=== PATIENT | male | born 1940 | race American Indian/Alaskan Native ===

== ENCOUNTER 2021-02-19 03:32 | Inpatient (IN) | payer OTHER ==
[~2021-02-19] VITALS: Ht 182.9 cm; Wt 96.4 kg
[2021-02-19] VITALS (34 sets, daily range): BP systolic 89–199; BP diastolic 28–85
--- NOTE | ~2021-02-19 | EMS ---
[facility] [address] [place] [address] EMS Patient Care Report Name: GEORGIA CHU Room #: 238-P ADM IN M.R.#: [id number] Admission: 02/19/21 Attend Phys: Padma Mejia Discharge: Date of : 36 Report #: [id number] THIS REPORT FOR: //name// Report Transmitted: 02/21/2021 14:28 EMS Care Summary [place], [place]/[facility] Incident [id number] @ 02/19/2021 02:55 Incident Location [id number] [place] [address] [address] [place] [address] Patient GEORGIA CHU Male, 80 Years 1940 Patient Address Patient History Novel Coronavirus (COVID-19), Patient Allergies Penicillin allergy, Patient Medications Furosemide, Losartan, Amiodarone, Atorvastatin, Terazosin, Proair, Eliquis, Aspirin, Chief Complaint Altered Level of Consciousness Disposition Transported [place] Dispatch Reason Unconscious/Fainting Transported To [facility] Narrative ME Staff sates hat she was doing he rounds when she found he pt w/ an altered LOC. Staff states that she could not wake pt up and pt appeared to be SOB. Staff states that pt was hypotensive and hypoxic upon her arrival. pt was diagnosed w/ COVID-19 6 days ago. ME staff states that pts O2 was increased [facility] [address] [place] [address] EMS Patient Care Report Name: GEORGIA CHU Room #: 238-P [facility] IN M.R.#: [id number] Admission: 02/19/21 Attend Phys: Padma Mejia Discharge: Date of : 36 Report #: [id number] from 2lpm to 4lpm due to the low O2 saturation. upon ems arrival, pt found laying supine in bed. pt w/ NH Staff and P28 crew. pt presents w/ labored breathing upon ems arrival.. pt moved to stretcher by ems, NH staff and P28 crew. Initial Vitals @03:18P: 62,SpO2: 80, @03:28P: 115,BP: 85/48,SpO2: 96, @03:27P: 66,BP: 68/45,SpO2: 84, @03:27P: 92,SpO2: 83, @03:26P: 81,BP: 73/40,SpO2: 92, @03:24P: 97,SpO2: 96, @03:16P: 65,R: 24,BP: 94/53,Pain: 0/10,GCS: 3,SpO2: 88,Revised Trauma: 8, @03:18P: 68,R: 24,BP: 113/54,Pain: 0/10,GCS: 5,Revised Trauma: 9, Assessments @03:11MENTAL:SKIN:Cold,Pale,HEENT:Eyes: Right Pupil: 3-mm,Eyes: Left Pupil: 3-mm,LUNG SOUNDS:ABDOMEN:PELVIS//GI:EXTREMITIES:Capillary Refill: Left Upper: 3 Sec,PULSE:Radial: 1+ Thready,NEURO: Impression Altered Mental Status Procedures @03:11ALS AssessmentResponse: UnchangedSucceeded@PTAOxygen FlowRate: 4 Device: Nasal Cannula (NC) Response: UnchangedSucceeded@03:21Saline Lock 0cc (18 ga) Site: Antecubital-LeftResponse: UnchangedFailed@03:16Oxygen FlowRate: 15 Device: Non Re-breather Mask (NRB) Response: UnchangedSucceeded@03:163-Lead ECGResponse: UnchangedSucceeded Timeline OPTICAL TECHNICIAN,Oxygen FlowRate: 4 Device: Nasal Cannula (NC) Response: UnchangedSucceeded, 02:53,Call Received 02:53,Dispatch Notified 02:55,Dispatched 02:59,En Route 03:09,On Scene 03:11,At Patient 03:11,ALS Assessment,Response: UnchangedSucceeded, 03:16,Oxygen FlowRate: 15 Device: Non Re-breather Mask (NRB) Response: UnchangedSucceeded, 03:16,3-Lead ECG,Response: UnchangedSucceeded, 03:16,BP: 94/53 M,PULSE: 65,RR: 24 R,SPO2: 88 Ox,ETCO2: ,BG: ,PAIN: 0,GCS: 3, 03:18,BP: / M,PULSE: 62,RR: R,SPO2: 80 Ox,ETCO2: ,BG: ,PAIN: ,GCS: , 03:18,BP: 113/54 M,PULSE: 68,RR: 24 R,SPO2: Ox,ETCO2: ,BG: ,PAIN: 0,GCS: 5, [address] [address] EMS Patient Care Report Name: GEORGIA CHU Room #: 238-P [facility] IN M.R.#: [id number] Admission: 02/19/21 Attend Phys: Padma Mejia Discharge: Date of : 36 Report #: [id number] 03:20,Depart Scene 03:21,Saline Lock 0cc 18 ga Site: Antecubital-Left,Response: UnchangedFailed, 03:24,BP: / M,PULSE: 97,RR: R,SPO2: 96 Ox,ETCO2: ,BG: ,PAIN: ,GCS: , 03:26,BP: 73/40 M,PULSE: 81,RR: R,SPO2: 92 Ox,ETCO2: ,BG: ,PAIN: ,GCS: , 03:27,At Destination 03:27,BP: 68/45 M,PULSE: 66,RR: R,SPO2: 84 Ox,ETCO2: ,BG: ,PAIN: ,GCS: , 03:27,BP: / M,PULSE: 92,RR: R,SPO2: 83 Ox,ETCO2: ,BG: ,PAIN: ,GCS: , 03:28,BP: 85/48 M,PULSE: 115,RR: R,SPO2: 96 Ox,ETCO2: ,BG: ,PAIN: ,GCS: , 03:38,Call Closed Disclaimer v1.1 Copyright 2020 [employer] This EMS Care Summary contains data elements from the applicable legal record (which may be displayed differently). It is designed to provide pertinent information for the following purposes: continuity of care, clinical quality, and state data reporting. The complete legal record is available to ED staff and administrators of the receiving hospital in [employer]'s Patient Tracker. All data is provided "as is."
[~2021-02-19 03:32] MED LIST: ASPIRIN81 M2 PO; ATORVASTATIN CA40 MG PO; AUGMENTIN 875875 MG PO; BP MEDS; CATAPRES0.1 MG PO; CLONIDINE0.1 PO; COZAAR 50 MG TA50 M1 PO; DEXAMETHASONE6 MG PO; ELIQUIS5 MG PO; IPRAT-ALBUT 0.5-3 ML INH; LASIX 20 MG TAB20 MG PO; LEVAQUIN 500 M500 MG PO; MIRALAX17 GM PO; PACERONE 200 M200 M1 PO; TERAZOSIN HCL10 MG PO; VENTOLIN HFA 1818 GM INH; VERAPAMIL ER120 MG PO
[2021-02-19 03:55] LABS: ABSOLUTE NEUTROPHILS 15.6 thou/uL (1.4-8.2); BASOPHILS 0.1 % (0.0-2.0); HEMATOCRIT 25.6 % (42.0-52.0); HEMOGLOBIN 8.2 gm/dL (14.0-18.0); LYMPHOCYTES 5.3 % (24.0-44.0); MCH 30.5 pg (26.0-34.0); MCV 95.4 fL (80.0-100.0); MONOCYTES 3.6 % (1.0-8.0); PLATELET COUNT 136 thou/uL (150-400); RBC 2.68 mil/uL (4.50-6.00); RDW 13.7 % (10.5-14.5); WBC 17.1 thou/uL (4.0-11.0)
[2021-02-19 03:58] LABS: CALCIUM 7.3 mg/dL (8.5-10.1); CREATININE 2.4 mg/dL (0.7-1.3); POTASSIUM 5.6 mmol/L (3.5-5.1)
[2021-02-19 04:06] LABS: BE(vivo) 2.7 mmol/L (-2 to +3); HCO3 30.4 mmol/L (22.0-26.0); PCO2 66.7 mmHg (35.0-45.0); PO2 97.1 mmHg (80.0-100.0); pH 7.276 (7.360-7.450); sO2 96.3 % (92.0-98.0)
[2021-02-19 04:10] LABS: ALBUMIN 2.2 g/dL (3.4-5.0); TOTAL BILIRUBIN 0.6 mg/dL (0.2-1.0); TOTAL PROTEIN 4.6 g/dL (6.4-8.2); TROPONIN-I 0.08 ng/mL (<0.06)
--- NOTE | 2021-02-19 07:40 | NUR ---
Called Jackie at this time to notify of him of hypotension while patient is maxed on pressors. Jackie gives verbal for albumin and hydrocortisone. Reports to call family member listed and he will discuss care goals with family. Attempted to call phone number listed on chart for Ric Catie (step-son). Ric does not answer phone. Message left to call ER back.
[2021-02-19 09:04] LABS: BE(vivo) -1.3 mmol/L (-2 to +3); PCO2 50.5 mmHg (35.0-45.0); PO2 97.4 mmHg (80.0-100.0); pH 7.312 (7.360-7.450); sO2 96.8 % (92.0-98.0)
[2021-02-19 09:08] LABS: APTT 23.4 Seconds (24.5-32.8); INR 1.1; PROTIME 11.9 Seconds (10.5-12.1)
--- NOTE | 2021-02-19 12:24 | EKG ---
[place] [address] [facility] [place] [address] ELECTROCARDIOGRAM REPORT Name: GEORGIA CHU Room #: 170-1 ADM IN M.R.#: [id number] Admission: 02/19/21 Attend Phys: Padma Mejia Discharge: Date of : 36 Report #: [id number] [facility] ED Test Date: 2021-02-19 Test Time: 04:51:35 Pat Name: GEORGIA CHU Department: Room: 170 Gender: M Geek Squad Manager: mariah : 1940 Requested By: Warner Manuel Order Number: [id number] MD: Igor Palacios Measurements Intervals [place] Rate: 129 P: PA: QRS: -62 QRSD: 137 T: 103 QT: 366 QTc: 537 Interpretive Statements Atrial fibrillation IVCD, consider atypical RBBB LVH with IVCD and secondary repol abnrm Electronically Signed On 02-19-2021 12:24:01 CDT by Igor Palacios [email or web address] <ELECTRONICALLY SIGNED> By: Igor Palacios MD 02/19/21 1224 0451 0451 Igor Palacios MD /PAIGE
--- NOTE | 2021-02-19 12:25 | EKG ---
[place] [address] [facility] [place] [address] ELECTROCARDIOGRAM REPORT Name: GEORGIA CHU Room #: 170-1 ADM IN M.R.#: [id number] Admission: 02/19/21 Attend Phys: Padma Mejia Discharge: Date of : 36 Report #: [id number] [facility] ED Test Date: 2021-02-19 Test Time: 09:10:09 Pat Name: GEORGIA CHU Department: Room: 170 1 Gender: M Recruiting Consultant: sepideh : 1940 Requested By: Maria Eugenia Healy Order Number: [id number] MD: Igor Palacios Measurements Intervals [place] Rate: 90 P: LA: QRS: -47 QRSD: 111 T: 111 QT: 398 QTc: 487 Interpretive Statements Atrial fibrillation Abnormal R-wave progression, late transition LVH with IVCD, LAD and secondary repol abnrm Compared to ECG 02/19/2021 04:51:35 Myocardial infarct finding no longer present Electronically Signed On 02-19-2021 12:25:29 CDT by Igor Palacios [email or web address] <ELECTRONICALLY SIGNED> By: Igor Palacios MD 02/19/21 1225 0910 0910 Igor Palacios MD /PAIGE
--- NOTE | 2021-02-19 16:45 | NUR ---
report received from [facility]. after Lynn transported pt to ct, pt admitted to icu #238 with diagnosis related to covid. see assessment for details. scant precedex infusing, pt sedated, no restraints while on vent at this time. SB 50-60's, titrating down vasoactive gtts- neosynephrine and levophed for bp control. protonix infusing- dark brown drainage per OG to very low suction. adequate urine output per gutierrez. prbc's 2nd unit infusing. slowly progressing.
--- NOTE | 2021-02-19 17:05 | NUR ---
VAT PLACED CL IN ER FOR COVID+
[2021-02-19 21:05] LABS: CREATININE 2.4 mg/dL (0.7-1.3); POTASSIUM 5.5 mmol/L (3.5-5.1); TROPONIN-I 0.27 ng/mL (<0.06)
[2021-02-20] VITALS (106 sets, daily range): BP systolic 81–180; BP diastolic 40–150
[2021-02-20 02:19] LABS: URINE BILIRUBIN NEGATIVE (Negative); URINE BLOOD 3+ (Negative); URINE CLARITY CLEAR; URINE COLOR YELLOW; URINE GLUCOSE-RANDOM* NEGATIVE (Negative); URINE KETONES NEGATIVE (Negative); URINE LEUKOCYTES-REFLEX TRACE (Negative); URINE NITRITE-REFLEX NEGATIVE (Negative); URINE PROTEIN (DIPSTICK) NEGATIVE (Negative); URINE UROBILINOGEN 0.2 E.U./dl (0.2-1.0)
[2021-02-20 02:58] LABS: AMORPHOUS URATES Many /LPF (None Seen); BACTERIA-REFLEX 1-9 Few /HPF (None Seen); FINE GRANULAR CASTS 0-3 Few /LPF (None Seen); HYALINE CASTS 0-3 Few /LPF (None Seen); MUCUS 4-6 Moderate strn/LPF (None Seen); SQUAMOUS 0-3 Few /LPF (0-3); URINE RBC >20 Many /HPF (NONE SEEN); URINE WBC-REFLEX 0-5 Rare /HPF (0-5)
--- NOTE | 2021-02-20 04:30 | HC ---
[facility] [place] [address] [place] [address] CONSULTATION Name: CHUGEORGIA J Room #: 238-P [facility] IN M.R.#: [id number] Admission: 02/19/21 Attend Phys: Padma Mejia Discharge: Date of : 38 Report #: [id number] THIS REPORT FOR: cc: FAM - Family physician unknown FAM - Family physician unknown Harvinder Lester MD ~ DATE OF SERVICE: 02/19/2021 INFECTIOUS DISEASE CONSULTATION ATTENDING PHYSICIAN: Dr. Mejia. REASON FOR EVALUATION: COVID-19 infection, complicated by respiratory failure and opacification of the left lung. HISTORY OF PRESENT ILLNESS: The chart was reviewed. The patient examined. This is an 80-year-old gentleman who resides in a facility, was brought in extremis to the Emergency Room. He is unable to give any details of his history, but clearly was having severe dyspnea, required emergent intubation in addition to that, was having evidence of septic shock with hypotension. He has known history of atrial fibrillation with cardiomyopathy. He was found to be COVID positive. I do not have any details if he was previously diagnosed. He was in renal failure with creatinine of 2.4. ABGs post-intubation on 100%, pH 7.276, pCO2 of 66.7, pO2 of 97.1. Lactic acid is 1.2 and increased to 2.6. Procalcitonin 0.06. He was empirically started on combination therapy with Levaquin, Merrem and vancomycin. At this point, he is not responsive, and intubated. ALLERGIES: LISTED TO PENICILLIN. CURRENT MEDICATIONS: Include levofloxacin, vancomycin, meropenem, pantoprazole, hydrocortisone. PAST MEDICAL HISTORY: Known atrial fibrillation, hypertension, TIAs. SOCIAL HISTORY: Unknown. FAMILY HISTORY: Unknown. REVIEW OF SYSTEMS: Not obtainable. PHYSICAL EXAMINATION: GENERAL: He appears chronically ill and undernourished, moderate distress. He is supine, maintained via an ET tube. He has got a central venous catheter now. VITAL SIGNS: Temperature 97.8, pulse 92, respirations 28, blood pressure 125/60. [facility] [address] [place] [place] [address] CONSULTATION Name: GEORGIA CHU Room #: 238-[facility] IN M.R.#: [id number] Admission: 02/19/21 Attend Phys: Padma Mejia Discharge: Date of : 38 Report #: [id number] SKIN: Dry. HEENT: Normocephalic. NECK: Appears to be supple. LUNGS: Scattered coarse breath sounds. HEART: Distant, borderline tachycardia. I do not appreciate a murmur, appears to be irregular. ABDOMEN: Distended, somewhat firm. There are no peritoneal signs appreciated. GENITOURINARY AND RECTAL: Deferred. LABORATORY DATA: Troponin 0.16. Procalcitonin 0.06. Chest x-ray as described above. Complete opacification of the left lung. ABGs most recently, pH 7.312, pCO2 of 50.5, pO2 of 97.4 at 100%. Electrolytes: Sodium 146, potassium 5.6, chloride 110, bicarbonate is 35, anion gap of 1, BUN and creatinine 114 and 2.4, glucose of 151, AST of 22, ALT of 30. Albumin of 2.2. CBC: White count of 17.1, H and H of 8.2 and 25.6, platelets of 136. ASSESSMENT AND PLAN: COVID-19 infection in the setting of respiratory failure with opacification of the left side. Certainly not classic presentation, I would favor more bacterial etiology in this setting. Agree with empiric broad-spectrum therapy. He is on corticosteroids; I think at this point, there is a role for remdesivir and he is in renal failure, which is contraindicated as well. He appears to be quite ill at baseline, raises question of occult process otherwise previously undiagnosed. When he stabilizes, would consider evaluation with prepped CT of the chest to exclude a postobstructive process or perhaps if fluid undergo a thoracentesis for better evaluation. We will check urinary antigen to exclude strep as a cause. Overall, his prognosis is guarded. <ELECTRONICALLY SIGNED> By: Harvinder Lester MD 02/20/21 0430 1019 46 Harvinder Lester MD /nt
[2021-02-20 06:00] LABS: HEMATOCRIT 20.5 % (42.0-52.0); LYMPHOCYTES 1.2 % (24.0-44.0); RBC 2.27 mil/uL (4.50-6.00)
[2021-02-20 06:01] LABS: ABSOLUTE NEUTROPHILS 22.9 thou/uL (1.4-8.2); HEMOGLOBIN 6.8 gm/dL (14.0-18.0); MCH 29.9 pg (26.0-34.0); MCHC 33.1 g/dL (28.0-37.0); MONOCYTES 2.7 % (1.0-8.0); PLATELET COUNT 83 thou/uL (150-400); POLYS 96.1 % (36.0-66.0); RDW 16.9 % (10.5-14.5); WBC 23.9 thou/uL (4.0-11.0)
[2021-02-20 06:09] LABS: MCV 90.4 fL (80.0-100.0)
[2021-02-20 06:14] LABS: CALCIUM 6.2 mg/dL (8.5-10.1); POTASSIUM 4.7 mmol/L (3.5-5.1)
[2021-02-20 14:54] LABS: BE(vivo) -2.8 mmol/L (-2 to +3); HCO3 23.6 mmol/L (22.0-26.0); PCO2 48.5 mmHg (35.0-45.0); PO2 237.9 mmHg (80.0-100.0); sO2 99.4 % (92.0-98.0)
[2021-02-20 14:55] LABS: pH 7.305 (7.360-7.450)
--- NOTE | 2021-02-20 15:49 | NUR ---
ASSUMED CARE OF PATIENT AT 0600. PATIENT WAS ON 20/100 +10
--- NOTE | 2021-02-20 15:51 | NUR ---
ASSUMED CARE OF PATIENT AT 0600. VENTILATOR SETTINGS WERE 20/500/.70 +10. PATIENT WAS HAVING TROUBLE MAINTAINING HIS SATURATION SO WE CHANGED TO 20/500/.80 +12. PATIENT WAS RECEIVING BLOOD AT THE TIME I MESSI AN ABG. IT WAS A CRITICAL PH OF 7.30 ALL OTHER VALUES WERE WITHIN NORMAL LIMITS. WILL CONTINUE TO WEAN PATIENT TOLERATED ONCE BLOOD IS FINISHED INFUSING
[2021-02-20 18:29] LABS: HEMATOCRIT 23.6 % (42.0-52.0); HEMOGLOBIN 7.7 gm/dL (14.0-18.0)
[2021-02-21] VITALS (37 sets, daily range): BP systolic 97–171; BP diastolic 48–63
[2021-02-21 05:00] LABS: BE(vivo) -1.5 mmol/L (-2 to +3); HCO3 24.3 mmol/L (22.0-26.0); PCO2 46.1 mmHg (35.0-45.0); PO2 163.2 mmHg (80.0-100.0)
[2021-02-21 06:26] LABS: ABSOLUTE NEUTROPHILS 17.6 thou/uL (1.4-8.2); HEMATOCRIT 22.6 % (42.0-52.0); HEMOGLOBIN 7.4 gm/dL (14.0-18.0); LYMPHOCYTES 1.5 % (24.0-44.0); MCH 29.9 pg (26.0-34.0); MCHC 32.7 g/dL (28.0-37.0); MCV 91.5 fL (80.0-100.0); PLATELET COUNT 83 thou/uL (150-400); POLYS 95.5 % (36.0-66.0); RBC 2.46 mil/uL (4.50-6.00); RDW 16.4 % (10.5-14.5); WBC 18.4 thou/uL (4.0-11.0)
[2021-02-21 06:51] LABS: CALCIUM 6.6 mg/dL (8.5-10.1); CREATININE 1.9 mg/dL (0.7-1.3); POTASSIUM 4.7 mmol/L (3.5-5.1)
--- NOTE | 2021-02-21 10:25 | NUR ---
WOUND CONSULT; THERE ARE FRICTION AREAS TO THE LEFT ELBOW ANS LEFT WRIST. SEROSANGIOUS DRAINAGE. S/S OF INFLAMMATION. NON ODOROUS. RECCOMENDATIONS; -XERORORM/BORDER FOAM CHANGE DAILY/PRN DISCUSSSED WITH RN.
--- NOTE | 2021-02-21 12:14 | NUR ---
COVID +, unable to visit with her, remains in enhanced isolation. On vent. Will cont following as needed for dc needs.
--- NOTE | 2021-02-21 15:46 | HC ---
[facility] [place] [address] [place] [address] CONSULTATION Name: CHUGEORGIA Denny Room #: 238-P ADM IN M.R.#: [id number] Admission: 02/19/21 Attend Phys: Padma Perea Jackie Discharge: Date of : 38 Report #: [id number] THIS REPORT FOR: cc: FAM - Family physician unknown FAM - Family physician unknown Marcio Lama MD ~ cc: Samuel Pinedo MD, Harvinder Lester MD DATE OF SERVICE: 02/19/2021 HISTORY OF PRESENT ILLNESS: The patient is an 80-year-old male who was evaluated for increasing shortness of breath. He was at a senior care facility recently diagnosed with COVID, reportedly had low oxygen saturations and hypotensive. He was minimally responsive on admission to the ER. Chest x-ray demonstrated whiteout of his left lung. The patient was started on blood pressure support including Levophed and epinephrine drips. EKG showing some ischemic changes, but no definitive STEMI. The patient was intubated emergently in the Emergency Room. I was consulted for evidence of significant GI bleed. The patient's hemoglobin on admission was 8.2 at 3:35 this morning; however, repeat hemoglobin at 9:15 was 5.8. An OG was placed after intubation and a large amount of bright red blood was aspirated away. The patient is on Eliquis and aspirin per his hospital chart. There are no family members available in order to obtain any further history, only history was available through the ER H and P. The patient was started with 1 unit of packed cells. His blood pressure remains 90s/60s, but has improved somewhat, but no melanotic stools during his ER stay so far. Labs are positive for COVID, on admission his INR is 1.10. PAST MEDICAL HISTORY: COVID pneumonia, now with respiratory failure requiring intubation, hypertension, previous history of TIA. MEDICATIONS ON ADMISSION: Lasix, aspirin 81 mg, albuterol, Eliquis, amiodarone, MiraLax, dexamethasone. ALLERGIES: PENICILLIN. REVIEW OF SYSTEMS: Unobtainable secondary to the patient being intubated. FAMILY HISTORY: Unobtainable. SOCIAL HISTORY: Unobtainable at this time. PHYSICAL EXAMINATION: VITAL SIGNS: Temperature 36.2, blood pressure 123/64, pulse in the 90s, respiratory rate 20. GENERAL: The patient is sedated on Precedex at this time and intubated. OG tube shows dark red blood in the aspirate of several 100 [place] [address] CONSULTATION Name: CHUGEORGIA Room #: [facility] IN M.R.#: [id number] Admission: 02/19/21 Attend Phys: Padma Mejia Discharge: Date of : 38 Report #: [id number] HEENT: Sclerae, nonicteric. CARDIOVASCULAR: Regular rate. CHEST: With decreased breath sounds bilaterally. ABDOMEN: Soft, nondistended. EXTREMITIES: No cyanosis, clubbing or edema. LABORATORY DATA: Initial labs on admission, WBC 17.1, hemoglobin 8.2, platelet count 136. Again, he had a drop in his hemoglobin of 5.8. INR 1.10. Sodium 146, potassium 5.6, chloride 110, bicarbonate 35, BUN 114, creatinine 2.4, glucose 151. Lactic acid level initially was 2.6, calcium 7.3, alkaline phosphatase 31. Troponin 0.16, total protein 4.6, albumin 2.2. Chest x-ray on admission near complete opacification of the left lung clear, right lung. Endotracheal tube in place. KUB, nonobstructive bowel gas pattern. ASSESSMENT AND PLAN: Gastrointestinal bleed, significant drop in his hemoglobin from admission early this morning from 8.2-5.8, obvious bright red blood through the OG tube, signifying significant upper GI bleed. Patient has multiple medical problems at this time including respiratory failure, complete whiteout of his left lung. He is on pressors. He is currently in the Emergency Room sedated, elevated lactic acid level. Agree with PPI drip, holding anticoagulation therapy. Continue to monitor hemoglobin closely. The patient is being transfused at this time. We will plan on emergent upper endoscopy for further evaluation. Unable to obtain consent from family member. We will proceed with emergency upper endoscopy. I will make further recommendations at that time. Thank you for allowing me to participate in his care. <ELECTRONICALLY SIGNED> By: Marcio Lama MD 02/21/21 1546 1320 1924 Marcio Lama MD /nt
--- NOTE | 2021-02-21 15:46 | P ---
[facility] [place] [address] PROCEDURE REPORT Name: GEORGIA CHU Room #: 238-P ADM IN M.R.#: [id number] Admission: 02/19/21 Attend Phys: Padma Mejia Discharge: Date of : 38 Report #: [id number] THIS REPORT FOR: cc: FAM - Family physician unknown FAM - Family physician unknown Marcio Lama MD ~ cc: Judi Pinedo, Harvinder Lester MD DATE OF SERVICE: 02/19/2021 DATE OF PROCEDURE: 02/19/2021 PROCEDURE PERFORMED: Upper endoscopy with bleeding control. HISTORY OF PRESENT ILLNESS: The patient is an 80-year-old male with COVID positive, respiratory failure, was intubated and noted to be hypotensive on admission in the Emergency Room, OG was placed and a large amount of bright red blood was aspirated. The patient is on Eliquis and aspirin for history of TIA. No other history available at this time as far as previous history of GI bleed. He has been placed on a Protonix drip. He had a drop in his hemoglobin on admission from 8.2 to 5.8. He is currently receiving 1 unit of packed cells. He is on pressure support and on Precedex at this time. Plan is for emergent upper endoscopy. Next, the procedure was performed on an emergency basis, unable to obtain any consent from family member or DPOA. The procedure was performed in the Emergency Room at the bedside. Again, the patient is on Precedex at this time. The OG tube was removed. DESCRIPTION OF PROCEDURE: Using a standard Olympus upper endoscope, the scope was placed in the patient's mouth and advanced under direct vision through the esophagus, stomach and into the second portion of the duodenum. Old blood was noted in the esophagus, but no obvious bleeding source or esophagitis was noted. Upon entering the stomach, a large clot was noted in the gastric fundus and this extended down through the pylorus. The areas were visualized. The gastric mucosa appeared normal, but again there was a large clot with limited visualization. As the scope was advanced into the duodenal bulb, it appears the clot was tethered somewhere within the duodenal bulb. This was difficult to visualize due to the size of the clot and the amount of blood in the area. Multiple washings and aspirations were performed. I was able to advance the scope through the first and into the second portion of the duodenum. It did not appear bleeding was coming from the second portion of the duodenum. I then brought the scope back up into the duodenal bulb area and again spent approximately 30 minutes trying to find the source. Eventually, I used epinephrine in the area where it appeared to be bleeding. 2 mL were used at that point. There was some slowing of the bleeding at this point. Eventually, I was able to find a large ulcer in the duodenal bulb that had a large fresh clot adherent to this area. I proceeded with injection of the base with [address] [address] PROCEDURE REPORT Name: GEORGIA CHU Room #: 238-P [facility] IN M.R.#: [id number] Admission: 02/19/21 Attend Phys: Padma Mejia Discharge: Date of : 36 Report #: [id number] epinephrine. No further bleeding was noted after epinephrine injection. I did not feel like cauterization due to the size of the clot would be successful and this was not a lesion that could be endoclipped in the ulcer base. At this point, no further bleeding was noted, although the clot remained intact. The scope was then withdrawn and the procedure terminated. The patient tolerated the procedure well. IMPRESSION: Large duodenal bulb ulcer with a large fresh clot, active bleeding, treated with epinephrine. No further active bleeding noted. Again, the clot remains in place at this time. RECOMMENDATIONS: 1. Continue PPI drip. 2. Continue to monitor hemoglobin closely. 3. Continue to hold anticoagulation therapy. If the patient has rebleeding, may need to consider interventional radiology option due to the size of the ulcer and clot base. Thank you for allowing me to participate in his care. <ELECTRONICALLY SIGNED> By: Marcio Lama MD 02/21/21 1546 1330 2100 Marcio Lama MD /nt
--- NOTE | 2021-02-21 18:33 | NUR ---
PT IS PROGRESSING TOWARDS DISCHARGE, EVIDENCED BY, LOWER FIO2 LEVEL, BETTER TOLERATING THE VENT. THIS WAS ACCOMPLISHED BY HAVING MAP GREATER THAN 65, PRODUCED BETTER URINE OUTPUT TODAY, BETTER SAO2 THROUGHOUT THE DAY. PULMONARY TOILETING STILL NEEDS WORK, PT'S INTAKE GREATER THAN OUTPUT FOR THE PAST DAY, NUTRITIONAL FEEDING WILL BE REASSESSED AT A LATER TIME, PROPOFOL GTT ADDED ON, FENTANYL GTT TITRATED DOWN BY 50% SON CALLED (AUTHORIZED CONTACT ON FILE) WAS UPDATED REGARDING CURRENT MEDICAL PRESENTATION, TALKED ABOUT FIO2, CRITICAL STATUS IN THE ICU, WELL TRENDING HGB LEVELS. VOICED SATISFACTION. WAS NOTIFIED BY RN TO CALL FOR UPDATES WHENEVER NEEDED BE. RN SIGNING OFF AT THIS TIME
[2021-02-22] VITALS (43 sets, daily range): BP systolic 108–170; BP diastolic 46–76
[2021-02-22 03:18] LABS: HEMOGLOBIN 6.9 gm/dL (14.0-18.0); MCH 30.4 pg (26.0-34.0); RBC 2.28 mil/uL (4.50-6.00)
[2021-02-22 03:19] LABS: MCHC 32.9 g/dL (28.0-37.0); MCV 92.3 fL (80.0-100.0); RDW 16.2 % (10.5-14.5)
[2021-02-22 10:21] LABS: CALCIUM 6.9 mg/dL (8.5-10.1); CREATININE 1.9 mg/dL (0.7-1.3); POTASSIUM 4.2 mmol/L (3.5-5.1)
--- NOTE | 2021-02-22 18:05 | NUR ---
PT IS PROGRESSING TOWARDS DISCHAGE, VENT SETTINGS LOWER THAN YESTERDAY, PT IS TOLERATING PROPOFOL THERAPY WELL, FENTANYL NOW AT 25MCG/HR, VASOPRESSIN HAS BEEN OFF, CURRENTLY ON THREE SEDATIVES ON LOW SETTINGS WITH LEVO AT 5. CVP TUBING AND FLUSH CHANGED TODAY, 1U OF BLOOD TRANSFUSED, HEMOGLOBIN NOW AT 8.2 MD AWARE. NO BM THIS SHIFT, BISACODYL PRN GIVEN PER ORDER. NO SKIN ISSUES AT THIS TIME, PT MAINTAINED ON STRICT TURN SCHEDULE. NO FAMILY MEMBER CONTACT. PT IS VERY STIFF AND INCREASINGLY BECOMING WEEPY AROUND THE ARMS. MD NOTIFIED. RN CONTINUING TO MONITOR AT THIS TIME
[2021-02-23] VITALS (30 sets, daily range): BP systolic 104–147; BP diastolic 46–73
[2021-02-23 01:06] LABS: HEMOGLOBIN 7.9 gm/dL (14.0-18.0)
[2021-02-23 02:17] LABS: HEMATOCRIT 24.6 % (42.0-52.0); MCH 29.1 pg (26.0-34.0); MCHC 31.8 g/dL (28.0-37.0); MCV 91.6 fL (80.0-100.0); RBC 2.68 mil/uL (4.50-6.00); RDW 16.5 % (10.5-14.5); WBC 17.3 thou/uL (4.0-11.0)
[2021-02-23 10:59] LABS: CALCIUM 7.1 mg/dL (8.5-10.1); CREATININE 1.6 mg/dL (0.7-1.3); POTASSIUM 4.3 mmol/L (3.5-5.1)
--- NOTE | 2021-02-23 12:42 | NUR ---
WOUND CARE F/U; THE PATIENT WOUNDS WERE ASSESSED TODAY. THE LEFT UPPER ARM AND FORARM SHOWS IMPROVEMENT. THERE STILL REMAINS A LARGE AMOUT OF SEROSANGINOUS DRAINAGE. NO ERYTHEMA OR ODOR. THE PATIENT REMAINS IN THE ICU. RECOMMENDATIONS; CHANGE TO AG FOAM AND SECURED WITH A TUBIGRIP. DISCSSED WITH RN.
[2021-02-23 22:31] LABS: HEMATOCRIT 24.2 % (42.0-52.0); HEMOGLOBIN 7.8 gm/dL (14.0-18.0)
[2021-02-24] VITALS (24 sets, daily range): BP systolic 114–135; BP diastolic 47–69
[2021-02-24 07:10] LABS: EOSINOPHILS 0.1 % (0.0-3.0); HEMOGLOBIN 8.1 gm/dL (14.0-18.0); RBC 2.71 mil/uL (4.50-6.00)
[2021-02-24 07:12] LABS: ABSOLUTE NEUTROPHILS 11.3 thou/uL (1.4-8.2); BASOPHILS 0.1 % (0.0-2.0); LYMPHOCYTES 1.6 % (24.0-44.0); MCH 29.7 pg (26.0-34.0); MCHC 32.2 g/dL (28.0-37.0); MCV 92.3 fL (80.0-100.0); MONOCYTES 5.5 % (1.0-8.0); PLATELET COUNT 89 thou/uL (150-400); POLYS 92.7 % (36.0-66.0); RDW 16.5 % (10.5-14.5); WBC 12.2 thou/uL (4.0-11.0)
[2021-02-24 07:24] LABS: ALBUMIN 2.4 g/dL (3.4-5.0); CALCIUM 7.3 mg/dL (8.5-10.1); CREATININE 1.7 mg/dL (0.7-1.3); POTASSIUM 3.9 mmol/L (3.5-5.1); TOTAL PROTEIN 4.2 g/dL (6.4-8.2)
[2021-02-24 08:41] LABS: BE(vivo) -1.1 mmol/L (-2 to +3); HCO3 26.1 mmol/L (22.0-26.0); PO2 114.8 mmHg (80.0-100.0); sO2 97.6 % (92.0-98.0)
[2021-02-24 08:42] LABS: pH 7.278 (7.360-7.450)
[2021-02-24 15:39] LABS: BE(vivo) -3.3 mmol/L (-2 to +3); PCO2 46.8 mmHg (35.0-45.0); PO2 81.3 mmHg (80.0-100.0); sO2 94.9 % (92.0-98.0)
[2021-02-24 16:52] LABS: pH 7.309 (7.360-7.450)
--- NOTE | 2021-02-24 19:40 | NUR ---
PT IS PROGRESSING TOWARDS DISCHARGE WAS ABLE TO GO ON CPAP TRIAL TODAY, TWICE, ONCE ON SEDATION, ONCE WITHOUT, BOTH FAILED, AND WILL ATTEMPT TOMORROW MORNING AGAIN. PT IS NOT FOLLOWING COMMANDS AND SEEN REACHING FOR THE ETUBE WHEN NOT SEDATED. PT REMAINS ON SAME GTT SETTINGS. TOLERATING TUBE FEEDING WELL NO RESIDUALS SEEN THIS SHIFT. NO FAMIL MEMBERS CALLED THIS SHIFT SO NO UPDATE WAS PROVIDED. PT IS RESTING AT THIS TIME, BISACODYL PRN WAS GIVEN, SMEAR SEEN DURING SUPPOSITORY INSERTION, KUB REFLECTS GAS IN COLON, GI FOLLOWING, HGB CAME BACK >8 THIS AFTERNOON. RN SIGNING OFF AT THIS TIME
[2021-02-25] VITALS (24 sets, daily range): BP systolic 104–166; BP diastolic 49–114
[2021-02-25 05:25] LABS: HEMATOCRIT 23.9 % (42.0-52.0); HEMOGLOBIN 7.9 gm/dL (14.0-18.0); MCH 30.3 pg (26.0-34.0); MCHC 33.3 g/dL (28.0-37.0); MCV 90.8 fL (80.0-100.0); RBC 2.63 mil/uL (4.50-6.00); WBC 10.3 thou/uL (4.0-11.0)
--- NOTE | 2021-02-25 05:28 | NUR ---
FOLLOWED COMMANDS WEAKLY IN ALL 4 EXTREMITIES AT MN ASSESSMENT. MOVES HEAD AND APPEARS UNCOMFORTABLE WITH TURNS AND SOME CARES. TOLERATING TF, SATS 100%. CAUTIOUSLY PROGRESSING TOWARD GOALS
[2021-02-25 05:34] LABS: CALCIUM 7.3 mg/dL (8.5-10.1); CREATININE 1.4 mg/dL (0.7-1.3); POTASSIUM 3.8 mmol/L (3.5-5.1)
--- NOTE | 2021-02-25 09:27 | NUR ---
Pt tolerating sedation vacation well - able to squeeze hands bilaterally, lift head off of pillow. Eyes are both open completely, pt beginning to follow simple instructions. Will pass on to RT and discuss with MD.
--- NOTE | 2021-02-25 14:56 | NUR ---
Chart review, discussed during am unite rounds and los. +COVID, remains on vent with nutritional support. CPAP trials. Spoke with step patrick tim via phone call, no concerns voiced. Education on skilled rehab, 1st choice would be [facility] would be where he would want rehab, he been there before per tim. will cont. following as needed for dc needs.
[2021-02-26] VITALS (30 sets, daily range): BP systolic 80–158; BP diastolic 29–83
[2021-02-26 05:28] LABS: HEMOGLOBIN 7.2 gm/dL (14.0-18.0)
--- NOTE | 2021-02-26 05:53 | NUR ---
SR WITH FREQUENT PACS, PT MORE AWAKE, FOLLOWS COMMANDS, DENIES PAIN, CAN ANSWER SIMPLE QUESTIONS WITH NOD/SHAKE. CLEANED UP SOFT SMALL BMX1, BLACK WITH DEFINITE RED/MAROON NOTED. MOVES R ARM UP AND DOWN, CAN SQUEEZE WITH L HAND BUT DOES NOT APPEAR TO MOVE IT WELL. REQUIRING FAIRLY FREQUENT ETT SUCTION
[2021-02-26 06:39] LABS: ABSOLUTE NEUTROPHILS 11.6 thou/uL (1.4-8.2); EOSINOPHILS 0.7 % (0.0-3.0); HEMATOCRIT 22.1 % (42.0-52.0); MCH 30.3 pg (26.0-34.0); MCHC 33.2 g/dL (28.0-37.0); MCV 91.2 fL (80.0-100.0); MONOCYTES 5.3 % (1.0-8.0); PLATELET COUNT 87 thou/uL (150-400); RBC 2.42 mil/uL (4.50-6.00); RDW 16.4 % (10.5-14.5); WBC 12.8 thou/uL (4.0-11.0)
[2021-02-26 06:50] LABS: ALBUMIN 1.8 g/dL (3.4-5.0); CALCIUM 7.3 mg/dL (8.5-10.1); CREATININE 1.5 mg/dL (0.7-1.3); POTASSIUM 3.5 mmol/L (3.5-5.1); TOTAL BILIRUBIN 1.2 mg/dL (0.2-1.0); TOTAL PROTEIN 3.5 g/dL (6.4-8.2)
--- NOTE | 2021-02-26 08:34 | NUR ---
Per Dr. Manriquez, type and screen patient. If GI feels intervention possible/necessary to call family.
[2021-02-26 09:03] LABS: URINE BILIRUBIN NEGATIVE (Negative); URINE BLOOD 3+ (Negative); URINE CLARITY CLEAR; URINE COLOR YELLOW; URINE GLUCOSE-RANDOM* NEGATIVE (Negative); URINE KETONES NEGATIVE (Negative); URINE LEUKOCYTES-REFLEX NEGATIVE (Negative); URINE NITRITE-REFLEX NEGATIVE (Negative); URINE PROTEIN (DIPSTICK) NEGATIVE (Negative); URINE SPECIFIC GRAVITY 1.015 (1.005-1.035); URINE UROBILINOGEN 0.2 E.U./dl (0.2-1.0)
[2021-02-26 09:36] LABS: CASTS None Seen /LPF (None Seen); MUCUS 0-3 Light strn/LPF (None Seen); SQUAMOUS 0-3 Few /LPF (0-3)
[2021-02-26 09:37] LABS: BACTERIA-REFLEX 1-9 Few /HPF (None Seen); URINE RBC 3-10 Few /HPF (NONE SEEN); URINE WBC-REFLEX 0-5 Rare /HPF (0-5)
[2021-02-26 09:40] LABS: CRYSTALS None Seen /LPF (None Seen)
--- NOTE | 2021-02-26 10:28 | NUR ---
RN spoke with son Ric extensively. Per Ric, his sister Kiera is not to be contacted regarding the pt after selling his house and forcing pt into a halfway home/assisted living facility after initially moving him in with her to be cared for. Per Dr. Manriquez, Kiera is requesting not to be contacted and does not want to be listed as DPOA anymore/is refusing decision making. RN called assisted living [facility] and spoke with front desk specialist who stated they wouldn't have any DPOA or living will on file as pt rents an apartment from them. RN to pass update to .
[2021-02-27] VITALS (25 sets, daily range): BP systolic 108–167; BP diastolic 57–93
[2021-02-27 05:26] LABS: HEMOGLOBIN 8.2 gm/dL (14.0-18.0)
--- NOTE | 2021-02-27 06:52 | NUR ---
PT NOT FOLLOWING COMMANDS TO KEEP HANDS DOWN, FOLLOWING OTHER COMMANDS, ATTEMPTING TO SPEAK. RESTRAINED FOR SAFETY. RESTING QUIETLY FOR MOST OF SHIFT
[2021-02-27 06:54] LABS: CALCIUM 7.4 mg/dL (8.5-10.1); CREATININE 1.3 mg/dL (0.7-1.3); POTASSIUM 3.7 mmol/L (3.5-5.1); TOTAL BILIRUBIN 1.1 mg/dL (0.2-1.0); TOTAL PROTEIN 4.1 g/dL (6.4-8.2)
[2021-02-27 11:17] LABS: ABSOLUTE NEUTROPHILS 12.5 thou/uL (1.4-8.2); BASOPHILS 0.1 % (0.0-2.0); EOSINOPHILS 0.1 % (0.0-3.0); HEMATOCRIT 24.6 % (42.0-52.0); MCH 30.5 pg (26.0-34.0); MCHC 33.4 g/dL (28.0-37.0); MCV 91.3 fL (80.0-100.0); MONOCYTES 5.5 % (1.0-8.0); PLATELET COUNT 111 thou/uL (150-400); POLYS 91.3 % (36.0-66.0); RBC 2.69 mil/uL (4.50-6.00); RDW 16.6 % (10.5-14.5); WBC 13.7 thou/uL (4.0-11.0)
[2021-02-28] VITALS (37 sets, daily range): BP systolic 98–187; BP diastolic 47–99
--- NOTE | 2021-02-28 06:17 | NUR ---
Pt remains stable this moning. No significant event in this shift. He is much more calmer since switched sedative to precedex gtt. HR were in 50's when he is sleeping. BP stable. Continue to tolerate TF well. He is slowly proressing toward goals.
[2021-02-28 07:01] LABS: CALCIUM 7.8 mg/dL (8.5-10.1); CREATININE 1.4 mg/dL (0.7-1.3); POTASSIUM 3.7 mmol/L (3.5-5.1)
[2021-02-28 12:57] LABS: HCO3 27.7 mmol/L (22.0-26.0); PCO2 37.9 mmHg (35.0-45.0); PO2 62.7 mmHg (80.0-100.0); pH 7.482 (7.360-7.450); sO2 93.6 % (92.0-98.0)
--- NOTE | 2021-02-28 14:08 | NUR ---
Chart review, COVID +. discussed during am unite rounds and los with hospitalist. Bedside nurse cont. update family. Vent, cpap trials as ordered by MD. Nutritional support. Will cont. following as needed for dc needs.
--- NOTE | 2021-02-28 14:24 | NUR ---
WOUND CARE F/U; THE LEFT FORARM AND WRIST WOUNDS ARE STABLE TODAY. NO CHAGE IN THE POC TODAY. THESE WOUNDS ARE LIKLEY FRICTION INJURIES FROM THE RESTRAINTS. SEROSANGINOUS DRAINAGE. DISCUSSED WITH BECKI.
--- NOTE | 2021-02-28 18:25 | NUR ---
PT IS NOT PROGRESSING TOWARDS DISCHARGE, CPAP TRIAL TODAY WITH PRECEDEX GTT ONBOARD, UNABLE TO COME OFF OF VENTILATOR DUE TO HIGH RESPIRATORY RATE AND LOW TIDAL VOLUME. RSBI TOO HIGH. SUPPOSITORY PRN GIVEN DAILY PER GI RECOMMENDATION, KUB DONE TODAY.
[2021-03-01] VITALS (33 sets, daily range): BP systolic 116–198; BP diastolic 56–107
[2021-03-01 04:51] LABS: HEMATOCRIT 25.8 % (42.0-52.0); HEMOGLOBIN 8.6 gm/dL (14.0-18.0); MCH 30.9 pg (26.0-34.0); MCHC 33.5 g/dL (28.0-37.0); MCV 92.2 fL (80.0-100.0); RBC 2.8 mil/uL (4.50-6.00); RDW 17.5 % (10.5-14.5); WBC 11.2 thou/uL (4.0-11.0)
[2021-03-01 05:54] LABS: CALCIUM 7.7 mg/dL (8.5-10.1); CREATININE 1.3 mg/dL (0.7-1.3); POTASSIUM 3.6 mmol/L (3.5-5.1)
[2021-03-01 14:37] LABS: HEMOGLOBIN 8.4 gm/dL (14.0-18.0)
--- NOTE | 2021-03-01 14:46 | NUR ---
PT IS PROGRESSING TOWARDS DISCHARGE AT THIS TIME, CPAP TRIAL FIRST ONE FAILED THOUGH PT WAS ABLE TO MAKE IT APPROXIMATELY 25MINUTES SUSTAINING UNTIL RESPIRATORY RATE GOT TOO HIGH AND RSBI >100. PT APPEARS MORE AWAKE THIS SHIFT, INTERACTING WITH STAFF MEMBERS, APPEARS UNCOMFORTABLE AT THIS TIME. WILL ADMINISTER APPROPERIATE MEDS TO KEEP COMFORT. RN CONTINUING TO MONITOR NO PT FAMILY MEMBERS CALLED AT THIS TIME
[2021-03-02] VITALS (22 sets, daily range): BP systolic 107–170; BP diastolic 58–86
[2021-03-02 04:58] LABS: HEMATOCRIT 25.6 % (42.0-52.0); HEMOGLOBIN 8.5 gm/dL (14.0-18.0); MCH 30.5 pg (26.0-34.0); MCHC 33.1 g/dL (28.0-37.0); MCV 92.2 fL (80.0-100.0); RBC 2.77 mil/uL (4.50-6.00); RDW 17.6 % (10.5-14.5); WBC 11.8 thou/uL (4.0-11.0)
[2021-03-02 05:15] LABS: CALCIUM 7.5 mg/dL (8.5-10.1); CREATININE 1.3 mg/dL (0.7-1.3); POTASSIUM 3.4 mmol/L (3.5-5.1)
--- NOTE | 2021-03-02 05:41 | NUR ---
PT AWAKE, ABLE TO INTERACT WITH STAFF, PASSIVE/ACTIVE ROM PERFORMED, ASKING ABOUT WHEN TUBE IS BEING REMOVED, STATING IT HURTS HIS THROAT. TOLERATING TF AT A SLOWER RATE, TITRATING VERY SLOWLY AFTER HIGH RESIDUALS RECENTLY. HR SB-SR, PAC/PVC, BP OCCASIONALLY SLIGHTLY ELEVATED. MINIMAL SECRETIONS,
[2021-03-03] VITALS (20 sets, daily range): BP systolic 92–170; BP diastolic 54–104
[2021-03-03 05:24] LABS: HEMATOCRIT 25.6 % (42.0-52.0); HEMOGLOBIN 8.4 gm/dL (14.0-18.0); MCH 30.6 pg (26.0-34.0); MCHC 32.8 g/dL (28.0-37.0); MCV 93.4 fL (80.0-100.0); RBC 2.74 mil/uL (4.50-6.00); RDW 17.8 % (10.5-14.5); WBC 13.3 thou/uL (4.0-11.0)
[2021-03-03 05:45] LABS: CALCIUM 7.5 mg/dL (8.5-10.1); CREATININE 1.3 mg/dL (0.7-1.3); POTASSIUM 3.3 mmol/L (3.5-5.1)
[2021-03-03 09:57] LABS: BE(vivo) 4.8 mmol/L (-2 to +3); HCO3 28.2 mmol/L (22.0-26.0); PCO2 37.3 mmHg (35.0-45.0); PO2 84.9 mmHg (80.0-100.0); pH 7.497 (7.360-7.450); sO2 97.1 % (92.0-98.0)
--- NOTE | 2021-03-03 11:00 | NUR ---
WOUND CARE F/U; THE LEFT ELBOW AND LEFT FORARM SKIN TEARS ARE MUCH IMPROVED TODAY. THEY ARE STABLE WOUNDS AT THIS TIME WITH NO S/S OF INFECTION. NO CHANGES TO POC, DISCUSSED WITH RN.
--- NOTE | 2021-03-03 13:40 | NUR ---
Pt tolerating NC well, one hour post extubation. Pt states he "doesn't want that breathing tube ever again". RN encouraged pt on his progress and turned on TV for pt to browse. RN to call family and update on extubation.
[2021-03-04] VITALS (14 sets, daily range): BP systolic 133–180; BP diastolic 69–97
[2021-03-04 05:53] LABS: HEMATOCRIT 27.6 % (42.0-52.0); HEMOGLOBIN 9.1 gm/dL (14.0-18.0); MCH 30.7 pg (26.0-34.0); MCV 93.1 fL (80.0-100.0); RBC 2.96 mil/uL (4.50-6.00); RDW 17.7 % (10.5-14.5); WBC 14.7 thou/uL (4.0-11.0)
[2021-03-04 06:11] LABS: CALCIUM 7.7 mg/dL (8.5-10.1); CREATININE 1.3 mg/dL (0.7-1.3); POTASSIUM 3.3 mmol/L (3.5-5.1)
--- NOTE | 2021-03-04 06:43 | NUR ---
ASSUMED CARE AT 1900. PT SATTING UPPER 90'S ON 5L, DENIES SOB. PT C/O NAUSEA, WHICH WORSENED WHEN LYING FLAT, CAUSING SOME CLEAR EMESIS; OBTAINED ORDER FOR COMPAZINE FROM [facility]. PT DID NOT SLEEP OVERNIGHT, JUST SAT AWAKE AND LOOKING AROUND; SEEMED TO STRUGGLE TO PROCESS TIMELINE OF COMING TO THE HOSPITAL AND HOW LONG HE WAS INTUBATED. VERY FLAT AFFECT. TO BE SEEN BY PT/OT/ST TODAY, POSSIBLY BE STARTED ON A DIET. SLOWLY PROGRESSING TOWARDS GOALS.
--- NOTE | 2021-03-04 14:03 | NUR ---
Discussed during los with hospitalist and unite round with pulmonary. Therapy to eval, speech to eval for diet. o2 3 L/nc. will send referral to [facility] when ready to dc. No anticipated dc over the weekend. Will cont following as needed for dc needs.
--- NOTE | 2021-03-04 14:50 | NUR ---
RECEIVED PT FROM ICU. PT RESTING IN BED. PT HAS FOREHEAD PULSE OX; SUCTION SET UP FOR SECRETIONS. VS SBP 150-160s, AFEBRILE. DR MOBLEY CONSULTED. FALL PRECAUTIONS IN PLACE. FREQUENT ROUNDING.
--- NOTE | 2021-03-04 17:07 | NUR ---
PATIENT STABLE FOR TRANSFER PER DR. GARCIA. ON 3L NC AND MAINTAINS SATS MID TO HIGH 90'S. SPEECH EVAL DONE THIS MORNING, PATIENT AT HIGH RISK FOR ASPIRATION. DR. GARCIA AND ITZ NOTIFIED. DENIES ANY PAIN OR DISCOMFORT. PT/OT SEEING PATIENT. RESTING IN BED WITH FLAT AFFECT, SPEAKS MINIMAL WORDS WHEN SPOKEN TO BUT WILL NOD HEAD YES OR NO. ALERT AND AWAKE. NOTED K+ 3.3, COMMUNICATED TO DR. MOBLEY, ALSO NOTED HTN AND HEMATURIA, COMMUNICATED TO DR. MOBLEY. PATIENT TRANSFERED TO ROOM 214 IN THE CCU. REPORT GIVEN TO JAMES CONNELL.
[2021-03-05 03:54] VITALS: BP 132/81
[2021-03-05 06:43] LABS: HEMATOCRIT 27.8 % (42.0-52.0); HEMOGLOBIN 9.1 gm/dL (14.0-18.0); MCH 30.8 pg (26.0-34.0); MCHC 32.8 g/dL (28.0-37.0); MCV 93.8 fL (80.0-100.0); RBC 2.96 mil/uL (4.50-6.00); RDW 17.7 % (10.5-14.5); WBC 11.4 thou/uL (4.0-11.0)
[2021-03-05 07:00] VITALS: BP 174/88
[2021-03-05 07:24] LABS: CALCIUM 7.7 mg/dL (8.5-10.1); CREATININE 1.5 mg/dL (0.7-1.3); POTASSIUM 3.2 mmol/L (3.5-5.1)
--- NOTE | 2021-03-05 07:48 | NUR ---
assessments as charted,vss, pt refusing to turn or reposition, no c/o pain, labs drawn thru the r ij, remains on 3l/nc will con't to monitor per ppoc.
--- NOTE | 2021-03-05 10:50 | NUR ---
PT IS AXOX3-4; PT HAS FLAT AFFECT AND DOES NOT WANT TO ANSWER QUESTIONS. WILL SHAKE HEAD NO, AND ONLY SPEAK IF HE APPEARS TO DISLIKE SOMETHING, SUCH MOVING HIS ARMS, TURNING. DR LEWIS CONSULTED. PT TO HAVE DOBHOFF REPLACED PER DR LEWIS, WITH INITIAL TUBE FEEDING RATE. DR GARCIA CONSULTED. PT APPEARS DEPRESSED AND DOES NOT WANT TO MOVE POSITIONS; COMPLAINS THE MOVING HURTS HIM. POC IS TO INITIATE TUBE FEEDING WITH MEDICATIONS; CONSULT DR LEWIS FOR ADDL INTERVENTIONS REGARDING DEPRESSION. PT/OT/ST CONSULTED. POOR PROGRESSION TOWARDS D/C GOALS. FREQUENT ROUNDING.
[2021-03-05 11:30] VITALS: BP 150/88
--- NOTE | 2021-03-05 13:34 | NUR ---
DOBHOFF PLACEMENT PER DR LEWIS. USED 6FR TO PLACE IN R NARES. XRAY FOR PLACEMENT. PT HAD REMOVED DOBHOFF PRIOR TO XRAY. DR LEWIS NOTIFIED. CONSULT PLACED FOR PSYCHIATRY FOR COMPETENCY AND SEVERE DEPRESSION. WILL CONTINUE TO ASSESS PT MENTATION. FREQUENT ROUNDING.
[2021-03-05 16:00] VITALS: BP 139/70; BP 149/113
[2021-03-05 19:42] VITALS: BP 192/91
--- NOTE | 2021-03-05 20:09 | NUR ---
UPON INITIAL ASSESSMENT PATIENT IS OBSERVED TO BE MOSTLY ALERT AND ORIENTED BUT WITHDRAWN AND FLAT. PATIENT VOICED REFUSAL OF DOBHOFF TUBE, AND THAT HE WOULD REMOVE IT IF PLACED. NURSE TO CONFER WITH PROVIDER.
[2021-03-05 20:18] VITALS: BP 148/86
[2021-03-06 03:26] VITALS: BP 178/85
[2021-03-06 04:53] LABS: HEMATOCRIT 26.5 % (42.0-52.0); HEMOGLOBIN 8.9 gm/dL (14.0-18.0); MCH 31.4 pg (26.0-34.0); MCHC 33.6 g/dL (28.0-37.0); MCV 93.4 fL (80.0-100.0); RBC 2.83 mil/uL (4.50-6.00); RDW 17.4 % (10.5-14.5)
[2021-03-06 05:34] LABS: CALCIUM 7.4 mg/dL (8.5-10.1); CREATININE 1.4 mg/dL (0.7-1.3); POTASSIUM 3.2 mmol/L (3.5-5.1)
[2021-03-06 07:49] VITALS: BP 185/95
[2021-03-06 11:31] VITALS: BP 192/77
[2021-03-06 15:36] VITALS: BP 186/81
--- NOTE | 2021-03-06 19:01 | NUR ---
UPON INITIALLY MEETING PATIENT THIS EVENING HE IS ALERT TO SELF ONLY. NURSING PUT PATIENT IS RESTRAINTS AND PLACED DOBHOFF PER PROVIDERS ORDERS. XRAY TAKEN OF PATIENTS ABDOMEN WITH PRIMARY NURSE INFORMED TO WAIT FOR RESULT PRIOR TO GIVING MEDICATIONS AND INITIATING TUBE FEED.
[2021-03-06 19:49] VITALS: BP 202/110
--- NOTE | 2021-03-06 20:07 | NUR ---
RECEIVED THE PT AXOX4, RESTING COMFORTABLY IN BED. VS SBP 160S-180S, AFEBRILE, SR WITH PVC ON MONITOR. PT HAS R IJ TL; RX IV MEDS GIVEN. ROUTE NOT AVAILABLE FOR ORAL/TUBE MEDS. DR LEWIS ROUNDED. PT WAS TOLD BY HOSPITALIST THE NEED FOR DOBHOFF, PT STATED HE "DIDN'T KNOW." PREVIOUS DOBHOFF PLACEMENT WAS UNSUCCESSFUL AND LAND RECLAMATION SPECIALIST STATED PT REFUSED DOBHOFF. PT DID NOT VERBALIZE ANY NEEDS THROUGHOUT SHIFT, NODDING AND GIVING "THUMBS UP" TO INDICATE 'YES.' DR LEWIS STATED PT NEEDED DOBHOFF, AND TO PLACE PT IN SOFT RESTRAINTS. PT WAS AXOX4 AT TIME OF STATEMENT. NURSE DID NOT AGREE WITH ORDER PT WAS FIRM IN HIS ACTIONS AND ANSWERS FROM PREVIOUS SHIFT. PT MENTATION WANED THROUGHOUT SHIFT, AND PT WAS AXOX2 BY END OF SHIFT. PT PLACED IN BILATERAL WRIST SOFT RESTRAINTS. DOBHOFF PLACED, AND STAT XRAY ORDERED. AWAITING RESULTS OF DOBHOFF PRIOR TO INITIATING TUBE FEEDING. FAMILY NOTIFIED OF RESTRAINTS AND DOBHOFF PLACEMENT. FAMILY COMMUNICATED UNDERSTANDING. POC IS TO RESUME TUBE FEEDINGS, AND CONTINUE RX MEDICATIONS THROUGH TUBE. WILL CONTINUE TO MONITOR VSS, PT MENTATION. FALL PRECAUTIONS IN PLACE. FREQUENT ROUNDING.
[2021-03-06 22:40] VITALS: BP 176/76
[2021-03-07 04:25] VITALS: BP 196/107
[2021-03-07 04:40] LABS: CALCIUM 7.4 mg/dL (8.5-10.1); CREATININE 1.4 mg/dL (0.7-1.3); POTASSIUM 3.1 mmol/L (3.5-5.1)
[2021-03-07 05:01] LABS: HEMATOCRIT 26.7 % (42.0-52.0); HEMOGLOBIN 9.1 gm/dL (14.0-18.0); MCH 31.8 pg (26.0-34.0); MCV 93.4 fL (80.0-100.0); RBC 2.86 mil/uL (4.50-6.00); RDW 17.8 % (10.5-14.5); WBC 8.9 thou/uL (4.0-11.0)
[2021-03-07 08:00] VITALS: BP 202/103
--- NOTE | 2021-03-07 11:10 | NUR ---
CHELSI reviewed chart and spoke with nursing and attending physician. Pt transferred to CCU from ICU. Enhanced Isolation precautions have been discontinued. Therapy evals have been ordered. ST to eval pt for recommendations for a diet. Pt has pulled out his dobhoff. Dobhoff is currently out. Pt is not in restraints. CHELSI spoke with pt's Ric naik, via phone. Updated provided. Discussed referral to [facility] SNF. Pt's gumaro is agreeable with referral, as pt has been to [facility] in the past. Pt was admitted to [facility] from [facility]. SW confirmed with [facility] post-acute liaison. Pt was in their SNF from 02/16/2021-02/19/2021. Pt was admitted to [place] from [facility]. CHELSI faxed referral to [facility] and left voice message for the admissions dept. Awaiting call back at this time. Will fax additional info when available. CHELSI is following to assist as needed with discharge planning.
[2021-03-07 12:06] VITALS: BP 154/42
[2021-03-07 16:00] VITALS: BP 164/77
[2021-03-07 20:38] VITALS: BP 211/97
[2021-03-08 04:51] VITALS: BP 179/90
--- NOTE | 2021-03-08 05:28 | NUR ---
PATIENT REFUSED HIS PO MEDS THIS SHIFT WELL HIS HEPARIN SQ THIS MORNING.PT STATES "LEAVE ME ALONE".MONITOR SHOWS SA WITH PVC'S.POC CONTINUED.
[2021-03-08 07:53] VITALS: BP 202/98
--- NOTE | 2021-03-08 09:07 | NUR ---
CHELSI reviewed chart. Palliative care physician consulted today. CHELSI left another voice message for the admissions dept at [facility] to follow up on referral faxed yesterday. CHELSI is following to assist as needed with discharge planning.
[2021-03-08 12:34] LABS: CALCIUM 7.5 mg/dL (8.5-10.1); CREATININE 1.4 mg/dL (0.7-1.3); POTASSIUM 3.2 mmol/L (3.5-5.1)
[2021-03-08 15:53] VITALS: BP 165/78
[2021-03-08 19:30] VITALS: BP 127/48
[2021-03-09 03:58] VITALS: BP 170/74
[2021-03-09 04:00] VITALS: BP 178/117
--- NOTE | 2021-03-09 04:15 | NUR ---
PT IS CONFUSED IN RESTRAINTS COMBATIVE MAKES NO SENSE WHEN HE TALKS. TAKES MEDS CRUSHED IN APPLESAUSE. LUNGS ARE CLEAR TO DIMININSED ON ROOM AIR. REPOSITION AND TELE LEADS PUT ON WITH THE AIDS. BED EXTERNDER PUT ON VIA MAINTENCE NOTIFIED PT IS TALL AND NEEDS IT FOR COMFORT. ONGOING ROUNDING AND CALL LIGHT WITHIN REACH FREQUENTLY
--- NOTE | 2021-03-09 04:21 | NUR ---
PT IS ALERT AND ORIENTED X2. PT SON CAME AND VISITIVED THIS EVENING. PT TOOK MEDS WITH APPLESAUSE AFTER SON VISITED. PT TURN IN BED. PT HAD A LOOSE LIQUID BOWEL MOVEMENT AND CLEANED UP. ABDOMEN IS SOFT ROUND BOWEL SOUNDS ACTIVE X4. EDEMA NOTED 4 PLUS IN LEGS BILATERAL AND HANDS BILAERAL NOTED. TUBI WRAPS IN LEGS AND HANDS NOTED. CALL LIGHT WITHIN REACH IF NEEDS ASSISTANCE
--- NOTE | 2021-03-09 11:54 | NUR ---
Pt's step son/dpoa Ric updated and advised [facility] is full with no beds available. [employer] snf listing reviewed. Ric is aware of possible need for ltc pending outcome of rehab. Pt refusing po/meds/therapy at times. Ric is interested in [facility], [facility] [place] as they are all closer to his home. He would consider [facility] if needed or [facility]. Referrals called and faxed to the first three facilities. Awaiting return call on bed availability at all three. Pt is dc ready today and [employer] is still waiving auth for SNF thru 03/28.
--- NOTE | 2021-03-09 12:35 | NUR ---
Pallative care consult yesterday evening. Sp with [facility] sp with step son and reports at this daniel he wants to continue with pursuing aggresive tx, Dr Squires also sp with him. Plan to inquire into skilled rehab, He was notified [facility] with no skilled beds avail.
[2021-03-09 15:00] VITALS: BP 115/66
[2021-03-09] MEDS ORDERED: PROTONIX40 M2 PO (16:13)
[2021-03-09] MEDS ORDERED: VITAMIN D325 MC2 PO (16:13)
[2021-03-09] MEDS ORDERED: AMLODIPINE BESY10 MG PO (16:13)
[2021-03-09] MEDS ORDERED: ACEROLA C500 MG PER TUBE (16:13)
[2021-03-09] MEDS ORDERED: FLOMAX0.4 MG PO (16:13)
[2021-03-09] MEDS ORDERED: CARAFATE 11 GM/10 M1 PO (16:13)
--- NOTE | 2021-03-09 18:38 | NUR ---
PATIENT BEING DISCHARGED TO [facility] VIA EMS AT THIS TIME. REPORT CALLED TO BECKI RICHARDSON NO QUESTIONS OR CONERNS AT TIME OF DISCHARGE. CENTRAL LINE REMOVED,TELE REMOVED. TOBIAS LEFT WITH DR. HART ORDERS.
== END 2021-03-09 18:30 | DRG 870 ==
LOC: ER 03:32 → EROBS 05:31 → ICU 05:31 → 2N 03-04 14:09
PROVIDERS: Emergency Medicine; Hospitalist; Internal Medicine; Internal Medicine Pulmonary Disease; Nurse Practitioner; Nurse Practitioner Family; Pediatrics; Specialist; ADMIT Hospitalist; ATTEND Hospitalist
PROC: 5A1955Z Respiratory Ventilation, Greater than 96 Consecutive Hours (ICD-10-PCS; principal; 2021-02-19)
PROC: 0BH17EZ Insertion of Endotracheal Airway into Trachea, Via Natural or Artificial Opening (ICD-10-PCS; principal; 2021-02-19)
PROC: 3E0G8GC Introduction of Other Therapeutic Substance into Upper GI, Via Natural or Artificial Opening Endoscopic (ICD-10-PCS; principal; 2021-02-19)
PROC: 02HV33Z Insertion of Infusion Device into Superior Vena Cava, Percutaneous Approach (ICD-10-PCS; principal; 2021-02-19)
PROC: 30233N1 Transfusion of Nonautologous Red Blood Cells into Peripheral Vein, Percutaneous Approach (ICD-10-PCS; principal; 2021-02-19)
DX: A41.9 Sepsis, unspecified organism (principal); U07.1 COVID-19; J12.82 Pneumonia due to coronavirus disease 2019; R65.21 Severe sepsis with septic shock; J80 Acute respiratory distress syndrome; K26.4 Chronic or unspecified duodenal ulcer with hemorrhage; G92 Toxic encephalopathy; E46 Unspecified protein-calorie malnutrition; N17.9 Acute kidney failure, unspecified; I42.9 Cardiomyopathy, unspecified; D62 Acute posthemorrhagic anemia; E87.0 Hyperosmolality and hypernatremia; K56.7 Ileus, unspecified; E87.8 Other disorders of electrolyte and fluid balance, not elsewhere classified; I10 Essential (primary) hypertension; R77.8 Other specified abnormalities of plasma proteins; E78.5 Hyperlipidemia, unspecified; I48.0 Paroxysmal atrial fibrillation; I95.9 Hypotension, unspecified; E87.5 Hyperkalemia; D69.6 Thrombocytopenia, unspecified; F32.9 Major depressive disorder, single episode, unspecified; E87.6 Hypokalemia; Z68.28 Body mass index [BMI] 28.0-28.9, adult; Z86.73 Personal history of transient ischemic attack (TIA), and cerebral infarction without residual deficits; Z79.82 Long term (current) use of aspirin; Z79.01 Long term (current) use of anticoagulants; Z79.899 Other long term (current) drug therapy; Z88.0 Allergy status to penicillin; Z87.891 Personal history of nicotine dependence
CPT/HCPCS: 10078; 10081; 85076